=== PATIENT | female | born 1980 | race Caucasian/White ===

== ENCOUNTER 2021-08-17 19:59 | Emergency (ER) | payer MEDICAID ==
[~2021-08-17] VITALS: Ht 157.5 cm; Wt 79.5 kg
[~2021-08-17 19:59] MED LIST: IBUP100T81 PO; OMEG300C3 PO
[2021-08-17 20:51] VITALS: BP 120/77
[2021-08-17 20:55] LABS: COVID AG,FIA SOURCE NASAL SWAB
== END 2021-08-17 21:30 | disposition home or self-care (01) ==
LOC: EMS 21:18
DX: Z01.812 Encounter for preprocedural laboratory examination (principal); Z20.822 Contact with and (suspected) exposure to COVID-19
CPT/HCPCS: 87426; 99283; C9803; U0003

== ENCOUNTER 2021-08-19 11:09 | Day surgery (SDC) | payer MEDICAID ==
[~2021-08-19] VITALS: Ht 157.5 cm; Wt 79.5 kg
[~2021-08-19 11:09] MED LIST changes: +SODIUM CHLORIDE 0.9% 1,000 ML IV ONE; +SODIUM CHLORIDE 0.9% 1,000 ML ONE
[2021-08-19] MEDS ORDERED: PROPOFOL 1% 20 ML VIAL IVP ONE (11:10)
[2021-08-19] MEDS ORDERED: LIDOCAINE/PF 2% 5 ML VIAL IM ONE (11:10)
== END 2021-08-19 14:30 | disposition home or self-care (01) ==
LOC: SURGERY 11:09
PROVIDERS: ATTEND Internal Medicine Gastroenterology
DX: K62.1 Rectal polyp (principal); K57.30 Diverticulosis of large intestine without perforation or abscess without bleeding; K64.0 First degree hemorrhoids; Z79.899 Other long term (current) drug therapy; Z98.890 Other specified postprocedural states
CPT/HCPCS: 45380; 88305; J2704; J3490; J7030